=== PATIENT | male | born 1980 | race Hispanic/Latino ===

== ENCOUNTER 2018-11-10 09:44 | Emergency (ER) | payer OTHER ==
[2018-11-10] MEDS ORDERED: Sodium Chloride 0.9% 1,000 ML IV ONE (11:23)
[2018-11-10 11:40] LABS: BASO % 0.2 % (0.0-2.0); EOS % 0.5 % (0.0-4.0); HEMOGLOBIN 16.2 g/dL (12.0-18.0); LYMPH % 13.3 % (20.0-40.0); MEAN CELL VOLUME 86.5 fL (80.0-94.0); MEAN CORPUSCULAR HEMOGLOBIN 30.5 pg (27.0-31.0); MEAN CORPUSCULAR HGB CONC 35.3 g/dL (33.0-37.0); MEAN PLATELET VOLUME 8.6 fL (7.2-11.7); MONO # 0.3 K/uL (0.0-0.8); MONO % 3.5 % (0.0-10.0); NEUT # 6.1 K/uL (1.8-7.0); NEUT % 82.5 % (50.0-75.0); RBC 5.29 Mil/uL (4.40-5.90); RED CELL DISTRIBUTION WIDTH 13.2 % (11.5-14.5); WHITE BLOOD COUNT 7.4 K/uL (4.8-10.8)
[2018-11-10 11:50] LABS: ALB/GLOB RATIO 1.3 (1.0-2.1); ALBUMIN 4.6 g/dL (3.5-5.0); ALT/SGPT 36 U/L (21-72); AST/SGOT 43 U/L (17-59); BLOOD UREA NITROGEN 12 mg/dL (9-20); CALCIUM 9.5 mg/dl (8.6-10.4); GFR NON-AFRICAN AMERICAN > 60; LIPASE 95 U/L (23-300)
[2018-11-10 11:56] LABS: URINE BILIRUBIN NEGATIVE (NEGATIVE); URINE BLOOD NEGATIVE (NEGATIVE); URINE CLARITY Clear (Clear); URINE COLOR Straw (YELLOW); URINE GLUCOSE (UA) NORMAL (Normal); URINE LEUKOCYTE ESTERASE NEG Leu/uL (Negative); URINE PROTEIN NEGATIVE (NEGATIVE); URINE UROBILINOGEN NORMAL mg/dL (0.2-1.0)
[2018-11-10 12:01] VITALS: BP 131/88; PULSE 64; RESP 17; TEMP 98.1; O2SAT 100
--- NOTE | 2018-11-10 13:00 | C.PDOC ---
History Of Present Illness 38-year-old male, whose PMHx includes GERD, presents to the ED for evaluation of room-spinning sensation, nausea and one episode of vomiting which began today. Patient states he felt very fatigued, then rested, and continued feeling unwell. Patient also reports some diarrhea and presents to the ED for further evaluation. Patient denies fever, chills, headache, vision change. Time Seen by Provider: 11/10/18 10:51 Chief Complaint (Nursing): Dizziness/Lightheaded History Per: Patient History/Exam Limitations: no limitations Onset/Duration Of Symptoms: Hrs Past Medical History Reviewed: Historical Data, Nursing Documentation, Vital Signs Vital Signs: Last Vital Signs Temp 98.1 F 11/10/18 12:00 Pulse 64 11/10/18 12:00 Resp 17 11/10/18 12:00 BP 131/88 11/10/18 12:00 Pulse Ox 100 11/10/18 12:00 Primary Care Provider: Non [facility] Provider, - Medical History PMH: No Chronic Diseases Surgical History: No Surg Hx Family History: States: Unknown Family Hx - Social History Hx Alcohol Use: Yes Hx Substance Use: No - Immunization History Hx Tetanus Toxoid Vaccination: No Hx Influenza Vaccination: No Hx Pneumococcal Vaccination: No Review Of Systems Constitutional: Negative for: Fever, Chills Eyes: Negative for: Vision Change Gastrointestinal: Positive for: Nausea, Vomiting Neurological: Positive for: Other (room spinning ). Negative for: Headache Physical Exam - Physical Exam Appears: Non-toxic, No Acute Distress Skin: Normal Color, Warm, Dry Head: Atraumatic, Normacephalic Eye(s): bilateral: Normal Inspection Oral Mucosa: Moist Neck: Supple Chest: Symmetrical, No Deformity, No Tenderness Cardiovascular: Rhythm Regular, No Murmur Respiratory: Normal Breath Sounds, No Rales, No Rhonchi, No Wheezing Extremity: Normal ROM, Capillary Refill (less than 2 seconds ) Neurological/Psych: Oriented x3, Normal Speech, Normal Cognition, Normal Motor, Normal Sensation, Other (normal [id number]) Gait: Steady ED Course And Treatment - Laboratory Results Result Diagrams: 11/10/18 11:33 11/10/18 11:33 Lab Results: Total Bilirubin 0.8 mg/dL (0.2-1.3) 11/10/18 11:33 AST 43 U/L (17-59) 11/10/18 11:33 ALT 36 U/L (21-72) 11/10/18 11:33 Alkaline Phosphatase 77 U/L (38-126) 11/10/18 11:33 Total Protein 8.0 g/dL (6.3-8.3) 11/10/18 11:33 Albumin 4.6 g/dL (3.5-5.0) 11/10/18 11:33 Globulin 3.4 gm/dL (2.2-3.9) 11/10/18 11:33 Albumin/Globulin Ratio 1.3 (1.0-2.1) 11/10/18 11:33 Lipase 95 U/L (23-300) 11/10/18 11:33 Urine Color Straw (YELLOW) 11/10/18 11:48 Urine Clarity Clear (Clear) 11/10/18 11:48 Urine pH 8.0 (5.0-8.0) 11/10/18 11:48 Ur Specific [place] 1.005 (1.003-1.030) 11/10/18 11:48 Urine Protein Negative mg/dL (NEGATIVE) 11/10/18 11:48 Urine Glucose (UA) Normal mg/dL (Normal) 11/10/18 11:48 Urine Ketones Negative mg/dL (NEGATIVE) 11/10/18 11:48 Urine Blood Negative (NEGATIVE) 11/10/18 11:48 Urine Nitrate Negative (NEGATIVE) 11/10/18 11:48 Urine Bilirubin Negative (NEGATIVE) 11/10/18 11:48 Urine Urobilinogen Normal mg/dL (0.2-1.0) 11/10/18 11:48 Ur Leukocyte Esterase Neg Hyacinth/uL (Negative) 11/10/18 11:48 Urine WBC (Auto) < 1 /hpf (0-5) 11/10/18 11:48 Urine RBC (Auto) < 1 /hpf (0-3) 11/10/18 11:48 O2 Sat by Pulse Oximetry: 100 (on RA) Pulse Ox Interpretation: Normal Medical Decision Making Medical Decision Making: Progress: Bloodwork and urinalysis ordered and reviewed. IV fluids and Zofran IVP administered. pt with nausea, dizziness, diarrhea and fatigue. normal neuro exam. labs normal. pt feels bwetter after ivf and zofran. able to ambulate without feeling lightheaded or dizzy. will d/c home with zofran and pmd f/u Disposition Counseled Patient/Family Regarding: Studies Performed, Diagnosis, Need For Followup, Rx Given - Disposition Disposition: HOME/ ROUTINE Disposition Time: 13:00 Condition: IMPROVED Additional Instructions: Use zofran for nausea up to 3 times a day if needed. Eat bland foods and clear fluids in small amounts at a time. Follow up with your doctor in 1=-2 days. Return to ER for any worse symptoms. Prescriptions: Ondansetron ODT [Zofran ODT] 4 mg PO TID #12 odt Instructions: Viral Gastroenteritis, Adult (DC) Forms: General Discharge Instructions, [employer] ([place]ian), Work Excuse - Clinical Impression Clinical Impression: Gastroenteritis - PA / DIALER / Resident Statement MD/DO has reviewed & agrees with the documentation as recorded. - Scribe Statement The provider has reviewed the documentation as recorded by the Scribe (Lorna Llamas) All medical record entries made by the Scribe were at my direction and personally dictated by me. I have reviewed the chart and agree that the record accurately reflects my personal performance of the history, physical exam, medical decision making, and the department course for this patient. I have also personally directed, reviewed, and agree with the discharge instructions and disposition.
== END 2018-11-10 13:31 | disposition home or self-care (01) ==
LOC: C.ER 09:44
DX: K52.9 Noninfective gastroenteritis and colitis, unspecified (principal)
CPT/HCPCS: 80053; 81001; 83690; 85025; 96361; 96374; 99285; J2405; J7030